=== PATIENT | female | born 1975 | race Caucasian/White ===

== ENCOUNTER → 2021-07-13 | Outpatient (CLI) | payer BC ==
[~2021-07-13] MED LIST: COLACE 100MG C100 MG PO; FEOSOL325 MG PO; IPRAT-ALBUT 0.5-3 ML INH; IRON 100 PLUS1 EACH PO; LEVAQUIN750 MG PO; NORCO 5-325 TA1 EACH PO; NORVASC 5 MG TAB5 MG PO; PREDNISONE 10 M10 MG PO; PROAIR HFA8.5 GM INH; SINGULAIR10 MG PO; ZOFRAN ODT 4 MG4 MG SL
[2021-07-13 08:20] LABS: HEMOGLOBIN 14.1 gm/dl (12.3-15.3); RED BLOOD COUNT 4.99 M/UL (4.00-5.10); WHITE BLOOD COUNT 11.4 K/UL (4.5-11.0)
[2021-07-13 08:41] LABS: BUN/CREATININE RATIO 14 (0-10)
== END ==
LOC: LAB 07:54
PROVIDERS: Nurse Practitioner
DX: Z12.11 Encounter for screening for malignant neoplasm of colon (principal)
CPT/HCPCS: 36415; 71046; 80048; 85025; 93005